=== PATIENT | female | born 2000 | race Caucasian/White ===

== ENCOUNTER 2021-08-29 21:58 | Emergency (ER) | payer BC, SELFPAY ==
--- NOTE | ~2021-08-29 | XR_ITS ---
EXAMINATION: XR LUMBOSACRAL SPINE CLINICAL INFORMATION: Right-sided low back pain COMPARISON: None TECHNIQUE: Three views of the lumbosacral spine. FINDINGS: The vertebral bodies and posterior elements are normal. The disc spaces are preserved and the vertebral alignment is normal. The paraspinal soft tissues are normal. Moderate stool is present throughout the colon. No bowel obstruction. XR/XR lumbar spine 2-3V IMPRESSION: Unremarkable examination.
[2021-08-29 22:02] VITALS: BP 150/88; PULSE 67; RESP 16; TEMP 36.4; O2SAT 100; BMI 24.2
[2021-08-29 23:05] VITALS: BP 111/62; PULSE 64; RESP 18; O2SAT 98
--- NOTE | 2021-08-29 23:07 | ED.BACK ---
HPI - Back Pain/Injury General Chief Complaint: Back Pain/Injury Stated Complaint: lower back injury Time Seen by Provider: 08/29/21 23:07 Source: patient Mode of arrival: ambulatory Limitations: no limitations History of Present Illness MD elicited complaint: back pain and back injury Onset (ago): week(s) (2 weeks but worse over past 4 days) Timing: progressively worsening Severity: moderate Similar Symptoms Previously: No Quality: sharp Location: lumbar spine Radiation: left upper leg Exacerbating factors: movement, walking and coughing/sneezing Relieving factors: none Context: turning/twisting and bending Associated symptoms: denies other symptoms Work related injury: No Related Data Previous Rx's Medication Instructions Recorded cyclobenzaprine 10 mg tablet 10 mg PO TID PRN #18 tab 08/29/21 ibuprofen 600 mg tablet 600 mg PO Q6H PRN #30 tab 08/29/21 lidocaine 4 % topical patch 1 patch TOPICAL DAILY PRN #10 ea 08/29/21 prednisone 20 mg tablet 40 mg PO DAILY 4 Days #8 tab 08/29/21 Allergies Allergy/AdvReac Type Severity Reaction Status Date / Time No Known Allergies Allergy Verified 08/29/21 23:26 Review of Systems Review of Systems: Constitutional : No Weight loss, No Fever, No Chills, ENT/Mouth : No Hearing loss, No Ear Pain, No Nasal Congestion, No Sinus Pain, No Hoarseness, No sore throat, No Rhinorrhea, No Swallowing Difficulty Cardiovascular : No Chest Pain, No SOB Respiratory : No Cough, No Dyspnea Gastrointestinal : No Nausea, No Vomiting, No Diarrhea, No abdominal Pain, No Hematochezia, No Melena Genitourinary : No Dysuria, No Urinary Frequency, No Hematuria, No Urinary Incontinence, Musculoskeletal : positive back pain Skin : No Skin Lesions, No rash Neuro : No Weakness, No Numbness, No Paresthesias, no loss of bowel or bladder incontinence, no saddle anesthesia PMFSH Past Medical History Attestation statement: The following information was validated with the patient. Medical History No known health problems Surgical History (Updated 08/29/21 @ 22:06 by Diana Ivy) Hx of anterior cruciate ligament surgery Social History Social History Alcohol intake: never Patient Tobacco Use Status: Never used Tobacco Use of substances other than those prescribed or required for medical reasons: No Patient : No Physical Exam Vital Signs: Vital Signs: Last Vital Signs Temp 97.6 F 08/29/21 22:02 Pulse 64 08/29/21 23:05 Resp 18 08/29/21 23:05 BP 111/62 08/29/21 23:05 Pulse Ox 98 08/29/21 23:05 BMI result Body Mass Index 24.2 Appearance: Alert. Oriented X3. No acute distress. Eyes: Pupils equal, round and reactive to light. ENT: Pharynx normal. Neck: Normal inspection. Neck supple. CVS: Normal heart rate and rhythm. Pulses normal. Respiratory: No respiratory distress. Breath sounds normal. Abdomen: Soft and non-tender. Back: L sided lower back pain, pain with left leg and contralateral leg raise at 15 degrees Skin: Skin warm and dry. Normal skin color. Normal skin turgor. Extremities: No lower extremity edema. Neuro: Oriented X 3. No motor deficit. No sensory deficit. SILT inner thigh L 5 5/5 bilaterally 2+ patella and achilles intact MDM - Back Pain/Injury MDM Narrative Medical decision making narrative: 21 yo female no AC therapy no IVDA here with 2 weeks of low back pain worse over the past 4 days especially after bending down with radicular symptoms down left leg her exam has no bowel/bladder incontinence or saddle anesthesia no CE symptoms - at this time she is NV intact treat as likely lumbar radiculopathy discussed need for PT and health center follow up Discharge Plan Discharge Clinical Impression: Lumbar radiculopathy Patient Disposition: Home, Self-Care Instructions: Lumbar Radiculopathy (ED), Lower Back Exercises (ED) Additional Instructions: return to ED for any worsening symptoms or concerns please do not work out until healed call your health center you need to work with physical therapy Prescriptions: New cyclobenzaprine 10 mg tablet 10 mg PO TID PRN (Reason: muscle spasm) Qty: 18 RF: 0 lidocaine 4 % adhesive patch,medicated 1 patch topical DAILY PRN (Reason: pain) Qty: 10 RF: 0 prednisone 20 mg tablet 40 mg PO DAILY 4 Days Qty: 8 RF: 0 ibuprofen 600 mg tablet 600 mg PO Q6H PRN (Reason: pain) Qty: 30 RF: 0
[2021-08-30] MEDS: predniSONE 20 MG TABLET 40 MG PO (00:52)
[2021-08-30] MEDS: Cyclobenzaprine HCl 10 MG TABLET PO (00:52)
[2021-08-30] MEDS: Ketorolac Tromethamine 60 MG/2 ML VIAL IM (00:55)
[2021-08-30] MEDS: Lidocaine 4 % Patch ADH..PATCH 1 PATCH TRANSDERMA (00:56)
== END 2021-08-30 01:01 | disposition home or self-care (01) ==
PROVIDERS: Emergency Provider Emergency Medicine
DX: M54.16 Radiculopathy, lumbar region (principal); Z79.899 Other long term (current) drug therapy
CPT/HCPCS: 72100; 96372; 99284; J1885